=== PATIENT | male | born 1985 | race Caucasian/White ===

== ENCOUNTER 2024-10-02 22:19 | Emergency (ER) | payer OTHER ==
[~2024-10-02] VITALS: Ht 172.7 cm; Wt 72.6 kg
[2024-10-02 23:13] VITALS: TEMP 98.2
[2024-10-03 00:32] LABS: BASOPHILS % (AUTO) 0.5 % (0.0-2.0); EOSINOPHILS % (AUTO) 0.1 % (0.0-6.0); HEMATOCRIT 29 % (39-51); HEMOGLOBIN 9.5 g/dL (13.5-17.5); LYMPHOCYTES % (AUTO) 26.9 % (20.0-44.0); MEAN CORPUSCULAR HEMOGLOBIN 26 PG (26.0-33.0); MEAN CORPUSCULAR HGB CONC 32 g/dl (31.0-36.0); MEAN CORPUSCULAR VOLUME 81 fL (80-96); MONOCYTES # (AUTO) 1.3 K/uL (0.1-1.30); MONOCYTES % (AUTO) 17.2 % (2.0-12.0); NEUTROPHILS # (AUTO) 4.2 K/uL (1.8-8.9); NEUTROPHILS % (AUTO) 55.3 % (43.0-81.0); PLATELET COUNT (AUTO) 298 K/uL (150-450); RED BLOOD CELL COUNT(AUTO) 3.61 MIL/uL (4.5-6.0); RED CELL DISTRIBUTION WIDTH 15.8 % (11.5-15.0); WHITE BLOOD COUNT (AUTO) 7.6 K/uL (4.3-11.0)
[2024-10-03 00:40] LABS: CALCIUM, SERUM 8.5 mg/dL (8.5-10.1); CREATININE 0.6 mg/dL (0.6-1.3)
[2024-10-03 00:46] LABS: ALBUMIN 2.7 g/dL (3.4-5.0); BILIRUBIN,DIRECT 0.1 mg/dL (0.0-0.2); BILIRUBIN,TOTAL 0.2 mg/dL (0.2-1.0); TOTAL PROTEIN, SERUM 6.5 g/dL (6.4-8.2)
[2024-10-03] MEDS ORDERED: ONDANSETRON HCL/PF 4 MG/2 ML VIAL ONE (00:47)
[2024-10-03] MEDS ORDERED: VANCOMYCIN 1 GM /D5W 250 ML PB IV ONE (00:47)
[2024-10-03] MEDS ORDERED: HYDROMORPHONE 1 MG/1 ML DISP.SYRIN ONE (00:48)
[2024-10-03 00:52] LABS: INR 1.08 (0.91-1.10); PARTIAL THROMBOPLASTIN TIME 29.9 SEC (24.3-34.3); PROTHROMBIN TIME 11.4 SECS (9.2-11.1)
[2024-10-03] MEDS: VANCOMYCIN 1 GM in IV D5W 250 ML IV ONE (00:55)
[2024-10-03] MEDS: HYDROMORPHONE INJ 2 MG/ML DISP.SYRIN IV ONE (00:55)
[2024-10-03] MEDS: ONDANSETRON HCL/PF 4 MG/2 ML VIAL IVP ONE (00:56)
[2024-10-03 01:16] LABS: LYMPHOCYTES % (MANUAL) 30 % (16-48); MONOCYTES % (MANUAL) 18 % (0-11.0); NEUTROPHILS % (MANUAL) 52 (42-76); PLATELET ESTIMATE ADEQUATE; STOMATOCYTES 1+
[2024-10-03 03:40] VITALS: BP 146/92; O2SAT 99
== END 2024-10-03 04:17 | disposition short-term general hospital (02) ==
LOC: ER 22:19
DX: L03.115 Cellulitis of right lower limb (principal); R60.9 Edema, unspecified; F15.10 Other stimulant abuse, uncomplicated; F17.210 Nicotine dependence, cigarettes, uncomplicated; I10 Essential (primary) hypertension; Z59.00 Homelessness unspecified
CPT/HCPCS: 99285; 96365; 96375; 85025; 80048; 80076; 36415; 85730; 85007; J1171; J3370 ×2; J2405; J7060